=== PATIENT | female | born 1990 | race Caucasian/White ===

== ENCOUNTER 2022-08-17 10:23 | Emergency (ER) | payer MEDICAID ==
[~2022-08-17] VITALS: Ht 152.4 cm; Wt 52.1 kg
[2022-08-17 11:31] VITALS: BP 108/63
[2022-08-17] MEDS ORDERED: IBUPROFEN 800 MG TAB PO ONE (11:45)
[2022-08-17] MEDS ORDERED: cefTRIAXone SOD 1,000 MG VL IM ONE (11:45)
[2022-08-17] MEDS ORDERED: CLIN300C8 PO (12:05)
[2022-08-17] MEDS ORDERED: IBUP800T27 PO (12:05)
== END 2022-08-17 12:13 | disposition home or self-care (01) ==
LOC: ER 10:23
DX: K04.7 Periapical abscess without sinus (principal); Z88.0 Allergy status to penicillin; Z88.1 Allergy status to other antibiotic agents
CPT/HCPCS: 96372; 99283; J0696